=== PATIENT | female | born 1980 | race Caucasian/White ===

== ENCOUNTER 2021-12-21 18:37 | Emergency (ER) | payer BC ==
[~2021-12-21] VITALS: Ht 162.6 cm; Wt 62.1 kg
[2021-12-21] MEDS: SODIUM CHLORIDE 0.9% 500 ML IV ONE ×2 (19:15→23:12)
[2021-12-21 20:09] LABS: Basophils # (auto) 0.1 10 ^3/uL (0-0.2); Hematocrit 24.7 % (36.0-46.0); Hemoglobin 7.1 g/dL (12.2-16.2); Lymphocytes # (auto) 1.5 10 ^3/uL (0.4-5.4); Mean Corpuscular Hemoglobin 15.9 pg (28.0-32.0); Monocytes # (auto) 0.3 10 ^3/uL (0-1.3); Neutrophils # (auto) 6.7 10 ^3/uL (1.6-8.6); Red Blood Cells 4.45 10^6/uL (4.0-5.20)
[2021-12-21 20:12] LABS: Basophils % (auto) 1.4 % (0.0-2.0); Eosinophils # (auto) 0.1 10 ^3/uL (0-0.8); Eosinophils % (auto) 0.9 % (0.0-7.0); Lymphocytes % (auto) 17.7 % (10.0-50.0); Mean Corpuscular Hgb Conc. 28.7 g/dL (32.0-36.0); Mean Corpuscular Volume 55.4 fL (80.0-100.0); Monocytes % (auto) 3.2 % (0.0-12.0); Neutrophils % (auto) 76.8 % (37.0-80.0); Red Cell Distribution Width 18.8 % (11.8-14.3); White Blood Cell 8.7 10^3/uL (4.4-10.8)
[2021-12-21 20:24] LABS: INR 1.03 (0.9-1.15); Partial Thromboplastin Time 25.1 sec (23.6-33.0)
[2021-12-21 20:30] LABS: Albumin 3.8 g/dL (3.4-5.0); Calcium 8.5 mg/dL (8.5-10.1); Potassium 3.9 mmol/L (3.5-5.1)
[2021-12-21 20:33] LABS: BUN/Creatinine Ratio 11.9; Bilirubin, Total 0.2 mg/dL (0.2-1.0); Total Protein 8.1 g/dL (6.4-8.2)
[2021-12-22 01:58] VITALS: BP 111/75
[2021-12-22 02:13] VITALS: BP 100/58
[2021-12-22 03:27] VITALS: BP 105/67
== END 2021-12-22 03:48 | disposition home or self-care (01) ==
LOC: ER 18:37 → EDBD 18:37 → ER 12-22 03:48
DX: R07.89 Other chest pain (principal); D64.9 Anemia, unspecified; Z20.822 Contact with and (suspected) exposure to COVID-19
CPT/HCPCS: 36415; 36430; 71045; 76830; 76856; 80053; 84484; 84702; 85025; 85610; 85730; 86850; 86900; 86901; 86920; 87426; 93005; 96360; 99285; J7040; P9016